=== PATIENT | male | born 1985 | race Caucasian/White ===

== ENCOUNTER 2019-03-05 20:51 | Emergency (ER) | payer MEDICAID ==
[~2019-03-05] VITALS: Ht 185.4 cm; Wt 109.0 kg
[~2019-03-05 20:51] MED LIST: AFRIN NS; IBUP-1051 PO; IBUP-1574 PO; IBUP-1984 PO; NAPR-1144 PO
[2019-03-05 20:57] VITALS: BP 124/59
[2019-03-05] MEDS ORDERED: CLIN-142 PO (21:40)
[2019-03-05] MEDS ORDERED: clindamycin 150mg capsule PO ONE (21:40)
[2019-03-05] MEDS ORDERED: NAPR-56 PO (21:40)
== END 2019-03-05 21:56 | disposition home or self-care (01) ==
LOC: ER 20:52
DX: K02.9 Dental caries, unspecified (principal); F41.9 Anxiety disorder, unspecified; G89.29 Other chronic pain; Z88.0 Allergy status to penicillin; Z79.2 Long term (current) use of antibiotics; Z79.899 Other long term (current) drug therapy
CPT/HCPCS: 99283

== ENCOUNTER 2019-09-15 13:15 | Emergency (ER) | payer MEDICAID ==
[~2019-09-15] VITALS: Ht 185.4 cm; Wt 117.4 kg
[2019-09-15 13:35] VITALS: BP 134/76
[2019-09-15] MEDS ORDERED: ketorolac tromethamine 15mg/ml inj. IM ONE (13:55)
== END 2019-09-15 15:36 | disposition home or self-care (01) ==
LOC: ER 13:16
DX: S46.811A Strain of other muscles, fascia and tendons at shoulder and upper arm level, right arm, initial encounter (principal); G89.29 Other chronic pain; F41.9 Anxiety disorder, unspecified; F17.200 Nicotine dependence, unspecified, uncomplicated; Z88.0 Allergy status to penicillin; Z79.899 Other long term (current) drug therapy; Z72.89 Other problems related to lifestyle; Y04.0XXA Assault by unarmed brawl or fight, initial encounter; Y93.89 Activity, other specified; Y92.89 Other specified places as the place of occurrence of the external cause; Y99.8 Other external cause status
CPT/HCPCS: 73030; 96372; 99283; J1885

== ENCOUNTER 2019-12-25 20:53 | Emergency (ER) | payer MEDICAID ==
[~2019-12-25] VITALS: Ht 188 cm; Wt 123.9 kg
[2019-12-25 21:02] VITALS: BP 139/82
[2020-01-21] MEDS ORDERED: GABA600T13 PO (14:42)
== END 2019-12-25 22:46 | disposition home or self-care (01) ==
LOC: ER 20:54
DX: K43.9 Ventral hernia without obstruction or gangrene (principal); G89.29 Other chronic pain; F41.9 Anxiety disorder, unspecified; Z88.0 Allergy status to penicillin; Z79.899 Other long term (current) drug therapy
CPT/HCPCS: 99282

== ENCOUNTER 2019-12-31 12:46 | Emergency (ER) | payer MEDICAID ==
[~2019-12-31] VITALS: Ht 188 cm; Wt 122.9 kg
[2019-12-31 14:00] LABS: BASOPHILS # (AUTO) 0.2 X10'3 (0-0.2); BASOPHILS % (AUTO) 1.9 % (0-1); EOSINOPHILS # (AUTO) 0.2 X10'3 (0-0.9); EOSINOPHILS % (AUTO) 1.5 % (0-6); HEMATOCRIT 46.8 % (42.0-52.0); HEMOGLOBIN 16.3 g/dl (14.0-17.9); LYMPHOCYTES # (AUTO) 2.1 X10'3 (1.1-4.8); LYMPHOCYTES % (AUTO) 19.5 % (21-51); MEAN CORPUSCULAR HEMOGLOBIN 33.2 PG (27.0-31.0); MEAN CORPUSCULAR HGB CONC 34.9 g/dL (33.0-36.5); MEAN CORPUSCULAR VOLUME 95.1 FL (78-98); MONOCYTES # (AUTO) 0.9 X10'3 (0-0.9); MONOCYTES % (AUTO) 8.5 % (2-12); NEUTROPHILS # (AUTO) 7.2 X10'3 (1.8-7.7); NEUTROPHILS % (AUTO) 68.6 % (42-75); PLATELET COUNT 260 X10'3 (140-440); RED BLOOD COUNT 4.92 X10'6 (4.70-6.10); RED CELL DISTRIBUTION WIDTH 13.5 % (11.5-14.5); WHITE BLOOD COUNT 10.6 X10'3 (4.5-11.0)
[2019-12-31] MEDS ORDERED: morphine 4 MG/ML inj SYRINge IV ONE (14:10)
[2019-12-31] MEDS ORDERED: normal saline 1000ml 1,000 ML IV ONE (14:10)
[2019-12-31] MEDS ORDERED: ondansetron/PF 4mg/2ml inj IV ONE (14:10)
[2019-12-31 14:16] LABS: ALANINE AMINOTRANSFERASE 150 U/L (12-78); ALBUMIN 4.1 G/DL (3.4-5.0); ALBUMIN/GLOBULIN RATIO 1.1 (1.1-1.5); ALKALINE PHOSPHATASE 118 IU/L (46-116); ANION GAP 12 (8-16); ASPARTATE AMINO TRANSFERASE 72 U/L (10-37); BILIRUBIN,TOTAL 0.7 MG/DL (0.1-1.0); BLOOD UREA NITROGEN 11 MG/DL (7-18); CALCIUM 9.4 MG/DL (8.5-10.1); CHLORIDE 105 MMOL/L (99-107); CREATININE 1.22 MG/DL (0.60-1.10); GLUCOSE 82 MG/DL (70-104); LIPASE 271 U/L (73-393); POTASSIUM 4.1 MMOL/L (3.5-5.1); SODIUM 139 MMOL/L (135-145); TOTAL CARBON DIOXIDE 22.3 MMOL/L (24-32); TOTAL PROTEIN 7.8 G/DL (6.4-8.2); eGFR 69 ML/MIN
[2019-12-31 14:31] LABS: CLARITY,URINE CLEAR (Clear); COLOR,URINE YELLOW (Yellow); GLUCOSE, URINE NEGATIVE (Neg); KETONES,URINE NEGATIVE (Neg); LEUKOCYTE ESTERASE ,URINE NEGATIVE (Neg); NITRITES, URINE NEGATIVE (Neg); OCCULT BLOOD,URINE NEGATIVE (Neg); PH,URINE 6.5 (4.8-8.0); PROTEIN,URINE NEGATIVE (Neg); UA COLLECTION TYPE VOIDED; UROBILINOGEN,URINE 0.2 E.U/dL (0.2-1.0)
[2019-12-31] MEDS ORDERED: ONDA4TAB6 PO (15:46)
[2019-12-31 16:05] VITALS: BP 123/82
== END 2019-12-31 16:06 | disposition home or self-care (01) ==
LOC: ER 12:46
DX: K43.9 Ventral hernia without obstruction or gangrene (principal); G89.29 Other chronic pain; F41.9 Anxiety disorder, unspecified; Z88.0 Allergy status to penicillin; Z79.899 Other long term (current) drug therapy
CPT/HCPCS: 36415; 76881; 80053; 81003; 83690; 85025; 96374; 96375; 99284; J2270; J2405; J7030

== ENCOUNTER 2020-01-28 05:25 | Day surgery (SDC) | payer MEDICAID ==
[2020-01-21 15:10] LABS: BASOPHILS % (AUTO) 0.7 % (0-1); EOSINOPHILS # (AUTO) 0.2 X10'3 (0-0.9); EOSINOPHILS % (AUTO) 2.3 % (0-6); LYMPHOCYTES # (AUTO) 2.2 X10'3 (1.1-4.8); LYMPHOCYTES % (AUTO) 31.9 % (21-51); MEAN CORPUSCULAR HEMOGLOBIN 33.4 PG (27.0-31.0); MEAN CORPUSCULAR HGB CONC 34.8 g/dL (33.0-36.5); MEAN CORPUSCULAR VOLUME 95.9 FL (78-98); MEAN PLATELET VOLUME 10.5 FL (7.4-10.4); MONOCYTES # (AUTO) 0.7 X10'3 (0-0.9); MONOCYTES % (AUTO) 9.5 % (2-12); NEUTROPHILS # (AUTO) 3.9 X10'3 (1.8-7.7); NEUTROPHILS % (AUTO) 55.6 % (42-75); PRE OP HEMATOCRIT 42.3 % (42.0-52.0); PRE OP HEMOGLOBIN 14.7 g/dL (14.0-17.9); PRE OP PLATELET COUNT 221 X10'3 (140-440); RED BLOOD COUNT 4.41 X10'6 (4.70-6.10); RED CELL DISTRIBUTION WIDTH 13.4 % (11.5-14.5)
[2020-01-21 15:27] LABS: ALBUMIN 3.7 G/DL (3.4-5.0); ALBUMIN/GLOBULIN RATIO 1.1 (1.1-1.5); ALKALINE PHOSPHATASE 113 IU/L (46-116); BLOOD UREA NITROGEN 8 MG/DL (7-18); BUN/CREATININE RATIO 6.5 (5.4-32.0); CALCIUM 8.9 MG/DL (8.5-10.1); CHLORIDE 106 MMOL/L (99-107); CREATININE 1.23 MG/DL (0.60-1.10); PRE OP ANION GAP 8 (8-16); PRE OP AST 48 U/L (10-37); PRE OP BILIRUB, TOTAL 0.7 MG/DL (0.0-1.0); PRE OP GLUCOSE 105 MG/DL (70-104); PRE OP POTASSIUM 3.7 MMOL/L (3.4-5.1); PRE OP SODIUM 141 MMOL/L (135-145); TOTAL CARBON DIOXIDE 26.8 MMOL/L (24-32); eGFR 68 ML/MIN
[2020-01-21 15:28] LABS: PRE OP ALT 122 U/L (30-65)
[2020-01-21 15:48] LABS: LARGE PLATELETS FEW; PLATELET ESTIMATE NORMAL
[2020-01-28] VITALS (8 sets, daily range): BP systolic 122–140; BP diastolic 70–89
[~2020-01-28] VITALS: Ht 185.4 cm; Wt 124.2 kg
[~2020-01-28 05:25] MED LIST changes: -AFRIN NS; +GABA600T13 PO; -IBUP-1051 PO; -IBUP-1574 PO; -NAPR-1144 PO; +ringers solution, lacted 1,000 ML IV SCH
[2020-01-28] MEDS ORDERED: clindamycin-Cleocin 900mg/D5W 50 ML IV ONE (05:30)
[2020-01-28] MEDS ORDERED: famotidine 20mg tablet PO ONE (05:30)
[2020-01-28] MEDS ORDERED: LIDOcaine 1% 30ml preserv. free vial ONE (06:42)
[2020-01-28] MEDS ORDERED: BUPIVAcaine/PF 2.5mg/ml (0.25%) 10ml vial ONE (06:42)
[2020-01-28] MEDS ORDERED: BUPIVACAINE liposomal/PF 13.3 MG/ML vial IM ONE (06:42)
[2020-01-28] MEDS ORDERED: BUPIVAcaine/PF 2.5 mg/ml (0.25%) 30ml vial ONE (06:42)
[2020-01-28] MEDS ORDERED: sevoflurane 250ml liquid IH ONE (07:30)
[2020-01-28] MEDS ORDERED: ringers solution, lacted 1,000 ML IV SCH (07:32)
[2020-01-28] MEDS ORDERED: morphine 4 MG/ML inj SYRINge IV PRN (07:35)
[2020-01-28] MEDS ORDERED: acetaminophen 1,000mg/100ml IV 100 ML IV PRN (07:35)
[2020-01-28] MEDS ORDERED: meperidine/PF 25mg/ml syringe IV PRN ×2 (07:35)
[2020-01-28] MEDS ORDERED: morphine 2 MG/ML inj. syringe IV PRN (07:35)
[2020-01-28] MEDS ORDERED: ondansetron/PF 4mg/2ml inj IV PRN (07:35)
[2020-01-28] MEDS ORDERED: proCHLORperazine 10 MG/2 ml inj IV PRN (07:35)
[2020-01-28] MEDS ORDERED: fentaNYL /PF 50mcg/ml 5ml ampule ONE (07:37)
[2020-01-28] MEDS ORDERED: midazolam 2 mg/2 ml injection ONE (07:37)
[2020-01-28] MEDS ORDERED: ondansetron/PF 4mg/2ml inj ONE (07:55)
[2020-01-28] MEDS ORDERED: propofol inj 20 ML IV ONE (07:55)
[2020-01-28] MEDS ORDERED: LIDOcaine 2% (20mg/ml) 5ml vial ONE (07:55)
[2020-01-28] MEDS ORDERED: rocuronium 10mg/ml inj IV ONE (07:55)
[2020-01-28] MEDS ORDERED: dexamethasone sod phosphate 4mg/ml inj. ONE (07:56)
[2020-01-28] MEDS ORDERED: ketorolac trometh. 30mg/ml inj. ONE (08:12)
[2020-01-28] MEDS ORDERED: ePHEDrine 50MG/ML INJ. ONE (08:26)
[2020-01-28] MEDS ORDERED: 0.9 % SODIUM CHLORIDE 10 ML VIAL ONE (08:26)
[2020-01-28] MEDS ORDERED: glycopyrrolate 0.2mg/ml inj ONE (09:02)
[2020-01-28] MEDS ORDERED: neostigmine methylsulfate 1 MG/ML 10ml vial ONE (09:02)
--- NOTE | 2020-01-28 09:09 | NUR ---
Received from OR via [facility], accompanied by Anesthesiologist OKBI and report given by Anesthesiolgist. PATIENT WITH 20G PIV IN LEFT UE RUNNING LR AT 100. MEDICATED FOR PAIN UPON ARRIVAL. 3 ABDOMINAL BANDAIDS PRESENT AND ARE CDI. VSS. 10L MASK ON WITH 100% SATURATIONS. Addendum: 01/28/20 at 0924 by Milton Alatorre RN, RN Amended: Links added.
[2020-01-28] MEDS: meperidine/PF 25mg/ml syringe IV PRN ×2 (09:18→09:42)
[2020-01-28] MEDS ORDERED: oxyCODONE/APAP 5-325mg tablet PO PRN ×2 (09:20)
--- NOTE | 2020-01-28 11:09 | NUR ---
I HAVE REVIEWED D/C INSTRUCTIONS WITH PATIENT AND FAMILY AND THEY HAVE VERBALIZED UNDERSTANDING. PATIENT D/C HOME WITH ALL BELONGINGS AND FAMILY GAVE TRANSPORT HOME VIA [facility]. EATING AND DRINKING NO NAUSEA, NO PAIN. DRESSINGS TO ABDOMEN IS CDI. Addendum: 01/28/20 at 1119 by Milton Alatorre RN, RN Amended: Links added.
== END 2020-01-28 11:09 | disposition home or self-care (01) ==
LOC: PAS 05:25
PROVIDERS: ATTEND Surgery
DX: K43.9 Ventral hernia without obstruction or gangrene (principal); K42.9 Umbilical hernia without obstruction or gangrene; G89.29 Other chronic pain; Z98.890 Other specified postprocedural states; Z88.0 Allergy status to penicillin; F17.210 Nicotine dependence, cigarettes, uncomplicated; Z79.899 Other long term (current) drug therapy; Z11.59 Encounter for screening for other viral diseases
CPT/HCPCS: 36415; 49652; 64488; 80053; 82948; 85025; C1781; C9290; J1100; J1885; J2001; J2175; J2250; J2405; J2704; J2710; J3010; J3490; S2900; U0003; A4215; A4618; J7120

== ENCOUNTER 2020-03-14 23:48 | Emergency (ER) | payer MEDICAID ==
[~2020-03-14] VITALS: Ht 188 cm; Wt 120.0 kg
[~2020-03-14 23:48] MED LIST changes: +ceFAZolin 2gm in dextrose, iso 50 ML IV ONE; -ringers solution, lacted 1,000 ML IV SCH
[2020-03-14] MEDS ORDERED: TETanus/Pertussis (Acell)/Diphther VAC/PF (Tdap-Adult) 0.5ml syringe IMVAC ONE (23:55)
[2020-03-14] MEDS ORDERED: ceFAZolin 1000mg inj IV ONE (23:55)
[2020-03-14] MEDS ORDERED: LIDOcaine 1% W/epiNEPHrine 1:200,000 10ml vial IJ ONE (23:55)
[2020-03-15] MEDS ORDERED: bacitracin 15gm ointment TP ONE (01:25)
[2020-03-15] MEDS ORDERED: CLIN150C2 PO (01:36)
[2020-03-15 02:16] VITALS: BP 137/86
== END 2020-03-15 02:19 ==
LOC: ER 23:48
DX: S59.912A Unspecified injury of left forearm, initial encounter (principal); F10.129 Alcohol abuse with intoxication, unspecified; G89.29 Other chronic pain; F41.9 Anxiety disorder, unspecified; Z88.0 Allergy status to penicillin; Z79.2 Long term (current) use of antibiotics; Z79.899 Other long term (current) drug therapy; W54.0XXA Bitten by dog, initial encounter; Y93.89 Activity, other specified; Y92.89 Other specified places as the place of occurrence of the external cause; Y99.8 Other external cause status; Y90.0 Blood alcohol level of less than 20 mg/100 ml
CPT/HCPCS: 12005; 73090; 73560; 90471; 90715; 96365; 99284

== ENCOUNTER 2022-06-23 17:02 | Emergency (ER) | payer MEDICAID ==
[~2022-06-23 17:02] MED LIST changes: -ceFAZolin 2gm in dextrose, iso 50 ML IV ONE
== END 2022-06-24 01:06 | disposition left against medical advice (07) ==
LOC: ER 17:02
DX: R05.9 Cough, unspecified (principal); R09.81 Nasal congestion; R52 Pain, unspecified; Z53.21 Procedure and treatment not carried out due to patient leaving prior to being seen by health care provider

== ENCOUNTER 2023-01-29 20:50 | Emergency (ER) | payer MEDICAID ==
[~2023-01-29] VITALS: Ht 185.4 cm; Wt 100.0 kg
[2023-01-29 21:37] LABS: BASOPHILS # (AUTO) 0.1 X10'3 (0-0.2); BASOPHILS % (AUTO) 0.5 % (0-1); EOSINOPHILS # (AUTO) 0.2 X10'3 (0-0.9); HEMATOCRIT 41.7 % (42.0-52.0); HEMOGLOBIN 14.4 g/dl (14.0-17.9); LYMPHOCYTES # (AUTO) 1.8 X10'3 (1.1-4.8); LYMPHOCYTES % (AUTO) 11.7 % (21-51); MEAN CORPUSCULAR HEMOGLOBIN 31.8 PG (27.0-31.0); MEAN CORPUSCULAR HGB CONC 34.5 g/dL (33.0-36.5); MEAN CORPUSCULAR VOLUME 92.4 FL (78-98); MEAN PLATELET VOLUME 9.6 FL (7.4-10.4); MONOCYTES % (AUTO) 6.3 % (2-12); NEUTROPHILS # (AUTO) 12.4 X10'3 (1.8-7.7); NEUTROPHILS % (AUTO) 80.5 % (42-75); PLATELET COUNT 274 X10'3 (140-440); RED BLOOD COUNT 4.51 X10'6 (4.70-6.10); RED CELL DISTRIBUTION WIDTH 12.9 % (11.5-14.5); WHITE BLOOD COUNT 15.4 X10'3 (4.5-11.0)
[2023-01-29 21:51] LABS: ALANINE AMINOTRANSFERASE 32 U/L (12-78); ALBUMIN 4.3 G/DL (3.4-5.0); ALBUMIN/GLOBULIN RATIO 1.4 (1.1-1.5); ALKALINE PHOSPHATASE 104 IU/L (46-116); ANION GAP 10 (8-16); ASPARTATE AMINO TRANSFERASE 17 U/L (10-37); BILIRUBIN,TOTAL 0.6 MG/DL (0.1-1.0); BLOOD UREA NITROGEN 13 MG/DL (7-18); BUN/CREATININE RATIO 9.2 (10.0-20.0); CALCIUM 9.8 MG/DL (8.5-10.1); CHLORIDE 106 MMOL/L (99-107); CREATININE 1.42 MG/DL (0.60-1.10); GLUCOSE 120 MG/DL (70-104); LIPASE 74 U/L (73-393); POTASSIUM 3.8 MMOL/L (3.5-5.1); SODIUM 142 MMOL/L (135-145); TOTAL CARBON DIOXIDE 25.7 MMOL/L (24-32); TOTAL PROTEIN 7.3 G/DL (6.4-8.2); eGFR 57 ML/MIN
--- NOTE | 2023-01-29 22:10 | NUR ---
RELIEVING RN FOR BREAK, PT C/O RLQ ABD PAIN, SUDDEN ONSET AT 1500, PAIN 4-9/10, INTENSITY INCREASES TO "SHARP", PT H/O HERNIA "UPPER ABD", WAITING TO BE EVALUATED
[2023-01-29] MEDS ORDERED: morphine 4 MG/ML inj SYRINge IV ONE (22:35)
[2023-01-29] MEDS ORDERED: ondansetron/PF 4mg/2ml inj IM ONE (22:35)
[2023-01-29] MEDS ORDERED: normal saline 1000ML IV soln IVB ONE (22:35)
[2023-01-29] MEDS ORDERED: ondansetron/PF 4mg/2ml inj IV ONE (22:55)
[2023-01-29] MEDS ORDERED: iohexol 300mg/ml 100ml inj. ONE (23:32)
[2023-01-30] MEDS ORDERED: ONDA8TAB13 PO (00:23)
[2023-01-30] MEDS ORDERED: DICY10CA88 PO (00:23)
[2023-01-30 00:40] VITALS: BP 120/72
[2023-01-30 00:45] LABS: COLOR,URINE YELLOW (Yellow); GLUCOSE, URINE NEGATIVE (Neg); KETONES,URINE NEGATIVE (Neg); LEUKOCYTE ESTERASE ,URINE NEGATIVE (Neg); NITRITES, URINE NEGATIVE (Neg); OCCULT BLOOD,URINE MODERATE (Neg); PH,URINE 6.5 (4.8-8.0); PROTEIN,URINE NEGATIVE (Neg); UROBILINOGEN,URINE 0.2 E.U/dL (0.2-1.0)
[2023-01-30 00:51] LABS: UA COLLECTION TYPE CLN CATCH MIDSTREAM
[2023-01-30 00:54] LABS: CLARITY,URINE SLIGHTLY CLOUDY (Clear)
[2023-01-30 00:55] LABS: BACTERIA,URINE FEW /HPF (Neg); MUCUS STRANDS FEW /LPF (Neg); RBC,URINE 20-50 /HPF (0-2); SQUAMOUS EPITHELIAL CELL,UR FEW /LPF (FEW); WBC,URINE 0-4 /HPF (0-4)
== END 2023-01-30 01:12 | disposition home or self-care (01) ==
LOC: ER 20:50
DX: R10.31 Right lower quadrant pain (principal); R11.2 Nausea with vomiting, unspecified; G89.29 Other chronic pain; M54.9 Dorsalgia, unspecified; F41.9 Anxiety disorder, unspecified; F17.200 Nicotine dependence, unspecified, uncomplicated; F15.10 Other stimulant abuse, uncomplicated; Z98.890 Other specified postprocedural states; Z88.0 Allergy status to penicillin; Z79.899 Other long term (current) drug therapy
CPT/HCPCS: 74177; 80053; 81001; 83690; 85025; 96361; 96374; 96375; 99285; J2270; J2405; J3490; J7030; Q9967